=== PATIENT | female | born 1985 | race Caucasian/White ===

== ENCOUNTER 2020-05-13 18:21 | Emergency (ER) | payer BC ==
[~2020-05-13] VITALS: Ht 157.5 cm; Wt 54.4 kg
[~2020-05-13 18:21] MED LIST: NOHOMEMEDICATIONS
[2020-05-13] MEDS ORDERED: APAP W/CODEINE1 TA2 PO (19:13)
[2020-05-13] MEDS ORDERED: IBUPROFEN 600600 M1 PO (19:13)
[2020-05-13 19:34] VITALS: BP 122/78
== END 2020-05-13 19:34 | disposition home or self-care (01) ==
LOC: M.ERS 18:21
DX: S93.491A Sprain of other ligament of right ankle, initial encounter (principal); W01.0XXA Fall on same level from slipping, tripping and stumbling without subsequent striking against object, initial encounter; Y93.89 Activity, other specified; Y92.89 Other specified places as the place of occurrence of the external cause; Y99.8 Other external cause status